=== PATIENT | female | born 1960 | race Caucasian/White ===

== ENCOUNTER 2023-12-26 13:34 | Emergency (ER) | payer OTHER, SELFPAY ==
[2023-12-26 13:40] VITALS: BP 159/88
[2023-12-26 13:55] LABS: % Basophils 0.9 % (0-2); % Eosinophils 12.5 % (0-6); % Immature Granulocytes 0.3 % (0-0.5); % Lymphocytes 17.5 % (20.5-51.1); % Monocytes 5.3 % (1.7-9.3); % Neutrophils 63.5 % (42.2-75.2); Absolute Basophils 0.1 10^3/uL (0-0.2); Absolute Eosinophils 1.3 10^3/uL (0-0.7); Absolute Lymphocytes 1.8 10^3/uL (1.2-3.4); Absolute Monocytes 0.6 10^3/uL (0.1-0.6); Absolute Neutrophils 6.6 10^3/uL (1.4-6.5); Hematocrit 43.1 % (37.0-47.0); Hemoglobin 14.6 g/dL (12.0-16.0); Mean Corp Hgb Conc. 33.9 g/dL (33.0-37.0); Mean Corpuscular Hgb 28.9 pg (27.0-31.0); Mean Corpuscular Volume 85.2 fL (81.0-99.0); Mean Platelet Volume 10.1 fL (7.4-10.4); Nucleated Red Blood Cells % 0 %; Platelet Count 367 10^3/uL (130-400); Red Blood Cell Count 5.06 10^6/uL (4.20-5.40); Red Cell Dist. Width 15.5 % (11.5-14.5); White Blood Cell Count 10.3 10^3/uL (4.8-10.8)
[2023-12-26 14:08] LABS: ALT (SGPT) 33 U/L (0-35); AST (SGOT) 32 U/L (14-36); Albumin 4.2 g/dl (3.5-5.0); Alkaline Phosphatase 94 U/L (38-126); Blood Urea Nitrogen 26 mg/dl (7-17); Calcium 9.9 mg/dl (8.4-10.2); Carbon Dioxide 20 mmol/L (22-30); Chloride 108 mmol/L (98-107); Glucose 105 mg/dl (70-99); Lipase 71 U/L (23-300); Potassium 4.1 mmol/L (3.5-5.1); Sodium 142 mmol/L (135-145); Total Bilirubin 0.5 mg/dl (0.2-1.3); eGFR > 60.00
[2023-12-26 15:39] VITALS: BP 128/85
--- NOTE | 2023-12-26 17:54 | ED.GENMED ---
History of Present Illness
General
Chief Complaint: Abdominal Symptoms
Time Seen by Provider: 12/26/23 17:35
History of Present Illness
History of Present Illness:
63-year-old female with history of chronic fatigue syndrome presents to the emergency department for evaluation of upper abdominal pain that is been ongoing for the past 2 to 3 weeks. Pain is intermittent in nature without obvious provoking or
palliating factors. She states she is able to eat and drink without any substantial change to symptoms. Pain resolved on arrival to the ER but is again returned. Denies any fevers or chills. No history of abdominal surgeries. Denies any leg
swelling. Denies NSAID use, alcohol use, or tobacco use.
Past History
Past History
ED Past Medical History: Other (kidney stones)
ED Past Surgical History: None
Social History
Tobacco: Non-smoker
Alcohol: None
Review of Systems
Review of Systems
Allergies reviewed?: Yes
All Other Systems: ROS reviewed and negative except as documented in HPI and ROS
Phy Exam
Physical Exam
Physical Exam:
GEN: Well appearing, NAD, WDWN
HEENT: Oral mucosa moist, no scleral icterus
Cardiac: Regular rate
Lung: No respiratory distress, no tachypnea
Abdomen: Soft, grossly nontender to palpation all 4 quadrants, no rigidity
MSK: No gross deformity or injuries
Skin: Good color, no pallor or jaundice, no rashes
Neuro: AO x3, moves all extremities freely
Psych: Calm, cooperative
Course
Orders/Labs/Results
Orders:
Orders
12/26/23 13:48
Complete Blood Count/With Diff Urgent
Comprehensive Metabolic Panel Urgent
Lipase Urgent
12/26/23 17:54
US Abdomen Complete/Upper Urgent
Comment:
Reason For Exam: upper abd pain
Abnormal Lab Results
12/26/23
13:48
RDW 15.5 H %
(11.5-14.5)
Absolute Neuts (auto) 6.6 H 10^3/uL
(1.4-6.5)
Absolute Eos (auto) 1.3 H 10^3/uL
(0-0.7)
Lymphocytes % 17.5 L %
(20.5-51.1)
Eosinophils % 12.5 H %
(0-6)
Chloride 108 H mmol/L
(98-107)
Carbon Dioxide 20 L mmol/L
(22-30)
BUN 26 H mg/dl
(7-17)
Glucose 105 H mg/dl
(70-99)
12/26/23 13:48
12/26/23 13:48
Vital Signs
Initial and Last Documented VS:
Initial Vital Signs
Temp Pulse Resp BP Pulse Ox
98.4 F 94 16 159/88 93
12/26/23 13:40 12/26/23 13:40 12/26/23 13:40 12/26/23 13:40 12/26/23 13:40
Last Documented Vital Signs
Temp Pulse Resp BP Pulse Ox
98.3 F 87 17 128/85 95
12/26/23 15:39 12/26/23 19:45 12/26/23 19:45 12/26/23 15:39 12/26/23 19:15
MDM/Problems Addressed
MDM/Problems Addressed:
Unclear etiology to upper abd pain. Not clearly post prandial to suggest biliary or ulcer disease. US normal. No exertional component to indicate workup for cardiac cause is warranted. Exam benign, do not feel CT is of utility. Will empirically
treat w/ PPI, recommend outpatient GI f/u
*Critical Care Note
Total Time (30-74mins, 75-104mins- exclusive of procedures): Not Applicable
ED Attending Note
-
Portions of this chart may have been created with voice recognition software.� Occasional wrong word or��sound alike� substitutions may have occurred due to the inherent limitations of voice recognition software.
Discharge Plan
Departure
Patient Disposition: Home (Routine Discharge)
Date of Disposition: 12/26/23
Time of Disposition: 19:45
Patient with high blood pressure during this ER visit?: No
Discharge Problem:
Abdominal pain, epigastric
Instructions: Abdominal Pain
Prescriptions:
New
pantoprazole 40 mg tablet,delayed release (DR/EC)
40 mg PO DAILY Qty: 30 0RF
No Action
tamsulosin [Flomax] 0.4 mg Capsule
0.4 mg PO DAILY Qty: 14 0RF
diclofenac potassium 50 mg tablet
50 mg PO BID Qty: 20 0RF
ondansetron 4 mg Tablet,Disintegrating
4 mg PO BIDPRN PRN (Reason: nausea/vomiting) Qty: 10 0RF
oxycodone 5 mg tablet
5 mg PO Q8H PRN (Reason: Pain) Qty: 14 0RF
Referrals:
Koffi Damon MD [Active] -
Rick Cox DO [Family Provider] -
Interventions
Interventions:
*Risk Screen - Suicide Last Done: 12/26/23 19:09
*General Assessment Last Done: 12/26/23 13:40
*Neglect/Abuse Screening Last Done: 12/26/23 19:09
ED- Fall Risk Assessment Last Done: 12/26/23 19:59
*ED COVID-19 Vaccine History Last Done: 12/26/23 13:40
*Nursing Disposition Last Done: 12/26/23 19:59
VU-Nsuiby-Arpnludyjy Assessment Last Done: 12/26/23 17:36
Discharge Date and Time
Discharge Date/Time: 12/26/23 20:00
Print Language: MALAWIAN
== END 2023-12-26 20:00 | disposition home or self-care (01) ==
LOC: EMR 13:34
PROVIDERS: Emergency Medicine; EMERGENCY PHYSICIAN Emergency Medicine; FAMILY PHYSICIAN Family Medicine
DX: R10.13 Epigastric pain (principal)
CPT/HCPCS: 99284; 76700; 80053; 83690; 85025

== ENCOUNTER → 2024-05-22 07:52 | Outpatient (REF) | payer OTHER, SELFPAY | LOC: HWRAD 07:52 | PROVIDERS: ATTENDING PHYSICIAN Family Medicine | DX: E04.9 Nontoxic goiter, unspecified (principal) | CPT/HCPCS: 76536 ==

== ENCOUNTER → 2024-11-11 09:33 | Outpatient (REF) | payer OTHER, SELFPAY | LOC: RAD 09:33 | PROVIDERS: ATTENDING PHYSICIAN Family Medicine | DX: Z87.442 Personal history of urinary calculi (principal); M19.90 Unspecified osteoarthritis, unspecified site; R06.02 Shortness of breath | CPT/HCPCS: 71046; 72100; 72170; 76700; 76856 ==

== ENCOUNTER → 2024-11-27 16:31 | Outpatient (REF) | payer OTHER, SELFPAY | LOC: RAD 16:31 | PROVIDERS: ATTENDING PHYSICIAN Family Medicine | DX: N28.1 Cyst of kidney, acquired (principal) | CPT/HCPCS: 74170; Q9967 ==